=== PATIENT | female | born 1960 | race Caucasian/White ===

== ENCOUNTER → 2018-05-24 | Outpatient (CLI) | payer OTHER ==
--- NOTE | 2018-05-24 13:19 | US ---
EXAMINATION TYPE: US carotid duplex BILAT DATE OF EXAM: 05/24/2018 COMPARISON: NONE CLINICAL HISTORY: R42 Vertigo. EXAM MEASUREMENTS: RIGHT: Peak Systolic Velocity (PSV) cm/sec ----- Right CCA: 81.6 ----- Right ICA: 107.7 ----- Right ECA: 133.4 ICA/CCA ratio: 1.3 RIGHT: End Diastole cm/sec ----- Right CCA: 33.6 ----- Right ICA: 43.0 ----- Right ECA: 38.7 LEFT: Peak Systolic Velocity (PSV) cm/sec ----- Left CCA: 92.0 ----- Left ICA: 121.1 ----- Left ECA: 92.0 ICA/CCA ratio: 1.3 LEFT: End Diastole cm/sec ----- Left CCA: 38.6 ----- Left ICA: 59.7 ----- Left ECA: 24.1 VERTEBRALS (direction of flow): Right Vertebral: Antegrade Left Vertebral: Antegrade Rhythm: Normal Mild atherosclerotic changes, Calcified plaque proximal Left ICA IMPRESSION: 1. Mild atherosclerotic changes bilaterally with no significant hemodynamic stenosis. Criteria for Assigning % of Stenosis / Diameter reduction (Estimation based on the indirect measurements of the internal carotid artery velocities (ICA PSV). 1. Normal (no stenosis)=ICA PSV < 125 cm/s: ratio < 2.0: ICA EDV<40 cm/s. 2. Less than 50% stenosis=ICA PSV < 125 cm/s: ratio < 2.0: ICA EDV<40 cm/s. 3. 50 to 69% stenosis=ICA PSV of 125 to 230 cm/s: ration 2.0 ? 4.0: ICA EDV 40-100 cm/s. 4. Greater than 70% stenosis to near occlusion= ICA PSV > 230 cm/s: ratio > 4.0: ICA EDV > 100 cm/s. 5. Near occlusion= ICA PSV velocities may be low or undetectable: variable ratio and ICA EDV. 6. Total occlusion=unable to detect flow.
== END | disposition home or self-care (01) ==
LOC: RADUSWWP 12:32
PROVIDERS: ATTEND Family Medicine
DX: I65.23 Occlusion and stenosis of bilateral carotid arteries (principal); Z88.6 Allergy status to analgesic agent; Z88.0 Allergy status to penicillin
CPT/HCPCS: 93880

== ENCOUNTER → 2018-06-07 | Outpatient (CLI) | payer OTHER ==
--- NOTE | 2018-06-14 13:06 | HM ---
HOLTER MONITOR REPORT Patient was monitored for 24 hours. The baseline rhythm is a sinus mechanism with normal conduction. The average rate 74 beats per minute, minimum 48, maximum 140 beats per minute. Ventricular ectopic activity was not present. Supraventricular ectopic activity was present in the form of rare single PACs. Symptoms of nausea and vomiting did not correlate with any dysrhythmia. CONCLUSION: 1. Sinus mechanism baseline rhythm. 2. No ventricular ectopic activity. 3. Rare supraventricular ectopic activity. 4. Symptoms did not correlate with any dysrhythmia. MMODL / IJN: [id number] /
== END | disposition home or self-care (01) ==
LOC: RADECHMAIN 11:53
PROVIDERS: ATTEND Family Medicine
DX: R55 Syncope and collapse (principal); Z88.0 Allergy status to penicillin; Z88.5 Allergy status to narcotic agent; Z88.6 Allergy status to analgesic agent
CPT/HCPCS: 93225; 93226

== ENCOUNTER → 2018-06-15 | Outpatient (CLI) | payer OTHER ==
--- NOTE | 2018-06-16 14:13 | MM ---
Reason for exam: screening (asymptomatic). Last mammogram was performed 2 years and 8 months ago. History: Benign left mammotome panel of the left breast, September 04, 2009. Benign excisional biopsy of the left breast. Physical Findings: A clinical breast exam by your physician is recommended on an annual basis and results should be correlated with mammographic findings. MG Screening Mammo w CAD Bilateral CC and MLO view(s) were taken. Prior study comparison: October 04, 2015, bilateral MG screening mammo w CAD. August 28, 2009, left breast mammogram dig work up. Left upper outer quadrant focal asymmetry. Middle posterior depth central slightly upper left distortion 6cm from nipple. This could correspond to the excisional site but appears new. ASSESSMENT: Incomplete: need additional imaging evaluation, BI-RAD 0 RECOMMENDATION: Special view mammogram of the left breast. If lesion persists on supplemental views, image directed ultrasound is recommended. [facility] will attempt to contact patient to return for supplemental views and ultrasound if indicated.
== END | disposition home or self-care (01) ==
LOC: RADMAMWWP 12:36
PROVIDERS: ATTEND Family Medicine
DX: Z12.31 Encounter for screening mammogram for malignant neoplasm of breast (principal)
CPT/HCPCS: 77067

== ENCOUNTER → 2018-06-21 | Outpatient (CLI) | payer OTHER ==
--- NOTE | 2018-06-21 22:42 | MR ---
EXAMINATION TYPE: MR brain wo/w con DATE OF EXAM: 06/21/2018 COMPARISON: NONE HISTORY: Migraines / G43.909 / Syncope / R55 TECHNIQUE: Multiplanar, multisequence images of the brain and brainstem is performed without and with IV contras t, utilizing 7.5 mL intravenous Gadavist . FINDINGS: Diffusion weighted images demonstrate no evidence of a recent infarct or other diffusion ab normality. There is no worrisome extra-axial fluid collection. The ventricular system and cisternal spaces are normal in size and appearance. The brain volume is age appropriate. There is occasional focus of T2 hyperintensity seen throughout the white matter bilaterally. Roughly 5-10 scattered lesio ns are seen. One of largest lesions is 4 mm posterior left frontal region at level of centrum semiova le on axial image 21. Midline structures demonstrate normal morphology. The craniocervical junction appears within normal limits. Post contrast images demonstrate no abnormal enhancement. The dural venous sinuses appear pa tent. Mild mucosal thickening involving ethmoid sinuses bilaterally is present otherwise paranasal si nuses are clear. The globes are intact bilaterally. No suspicious opacification of mastoid air cells is seen. IMPRESSION: Mild nonspecific white matter changes may be on basis of altered vascular flow related to product of migraine headaches. No suspicious enhancement is noted.
== END | disposition home or self-care (01) ==
LOC: RADMRIMAIN 18:35
PROVIDERS: ATTEND Family Medicine
DX: R90.82 White matter disease, unspecified (principal); G43.909 Migraine, unspecified, not intractable, without status migrainosus
CPT/HCPCS: 70553; A9585

== ENCOUNTER → 2018-08-09 | Day surgery (SDC) | payer OTHER ==
[2018-08-05 14:15] VITALS: BMI 26.2
[~2018-08-09] MED LIST: HYDROmorphone 0.5 MG/0.5 ML SYRINGE IVP PRN; KETOROLAC 30 MG/ML 1 ML VIAL ONE; LACTATED RINGERS 1,000 ML IV SCH; LIDOCAINE 1% 20 ML VIAL (10MG/ML) FOR IV START INTRADERMA PRN; MIDAZOLAM 2 MG/2 ML VIAL IVP ONE; MIDAZOLAM 2 MG/2 ML VIAL ONE; ONDANSETRON 4 MG/2 ML VIAL IVP ONE; PROPOFOL 10 MG/ML 20 ML VIAL IV ONE; Pre Op ABX Message 1 EACH MISC MISCELLANE ONE; ceFAZolin IN SWFI 2 GM/20 ML SYRINGE IVP STA; fentaNYL (PF) 50 MCG/ML 2 ML AMP IVP ONE; fentaNYL (PF) 50 MCG/ML 2 ML AMP ONE
[2018-08-09 09:28] VITALS: RESP 16; TEMP 98.2
--- NOTE | 2018-08-09 11:09 | P.ONQ ---
Anesthesiology Proc Note - PNB - Peripheral Nerve Block Performed Left Axillary Single Time Out Performed: Yes (1020) Procedure Start Time: 10:20 Procedure Stop Time: 10:26 Indication: Acute Post-Operative Pain, Dx/Pain Location (Left Wrist Pain), Requested by physician Sedation Type: Sedate with meaningful contact maintained Preparation: Sterile Prep Position: Supine Catheter: None Needle Types: On-Q Needle Size: 50mm (2") Needle Gauge: 21 Technique: Ultrasound Injectate: Other (see comment) (15ml 0.5% Ropivacaine + 10ml 2% Lidocaine with 1 :200,000 epi) Blood Aspirated: No Pain Paresthesia on Injection Noted: No Resistance on Injection: Normal Events: Uneventful and Well Tolerated
[2018-08-09 12:05] VITALS: PULSE 71
--- NOTE | 2018-08-09 12:15 | OP ---
OPERATIVE REPORT DATE OF SERVICE: 08/09/2018 PREOPERATIVE DIAGNOSES: 1. Basal joint arthritis, left thumb. 2. Left carpal tunnel syndrome. POSTOPERATIVE DIAGNOSES: 1. Basal joint arthritis, left thumb. 2. Left carpal tunnel syndrome. PROCEDURE: 1. Excision of trapezium with ligament reconstruction, tendon interposition arthroplasty using the flexor carpi radialis tendon, left thumb. 2. Left carpal tunnel release. APPLICATOR SPRAYER: Faye Osorio. PROCEDURE DESCRIPTION: The patient was taken to the Operative Suite after an axillary block was performed by the Department of Anesthesia in the holding area with good results. The involved arm was prepped and draped in the usual manner, elevated, exsanguinated and blood pressure tourniquet inflated to 250 mm of mercury. A volar incision was made over the palm of the hand using a Britton approach. The dissection was taken through the subcutaneous tissue bluntly to identify and to preserve sensory branches. The flexor carpi radialis tendon was initially identified and kept in view throughout the remainder of the procedure. The thenar muscles were then gently dissected off of the volar capsule and reflected ulnarly and distally. Longitudinal arthrotomy was then made into the trapezial metacarpal and scaphotrapezial joints. The trapezium was dissected sharply with a little traction on the thumb and care again, given to monitoring the position of the flexor carpi radialis. The trapezium was osteotomized and removed in piecemeal fashion using rongeur. Again, the flexor carpi radialis tendon was kept intact so as not to be harmed during this portion of the procedure. A drill hole was then made into the base of the first metacarpal, beginning with an awl and enlarged using drill bits and a large curette. A similar hole was drilled on the dorsal aspect of the base of the first metacarpal perpendicular to the plane of the nail bed. Attention was then turned to harvesting the flexor carpi radialis. Approximately 8 to 10 cm proximal to the wrist, small transverse incision was made and blunt dissection was taken through the subcutaneous tissue. The flexor carpi radialis tendon was identified and released to this level. It was retracted into the wrist wound with a gentle tug. A suspension sling arthroplasty was then performed along with ligament reconstruction of the deep volar ligament using the flexor carpi radialis tendon. The edge of the tendon was secured with suture. The suture was then passed into the base of the first metacarpal and brought out through the dorsal drill hole and brought back down upon itself and abductor pollicis longus tendons. It was secured in place with 3-0 PDS suture. It was then brought back around itself, back through the abductor pollicis longus tendons, and back down upon itself again and further secured with 3-0 PDS suture. Again, in this manner reconstruction of the deep volar ligament was accomplished as well as a suspension sling arthroplasty and natural tendon spacer for the joint. Next, a longitudinal incision was made along the ring finger ray distal to the wrist crease. Dissection was taken through the skin and subcutaneous tissue, initially sharp through the skin and then blunt through the subcutaneous tissue to ensure protection of any potential terminal transverse branches of the palmar cutaneous nerve. The palmar fascia was then incised under direct vision longitudinally exposing the transverse carpal ligament. The transverse carpal ligament also was incised under direct visualization. The median nerve was then reflected free of tenosynovium to ensure no adhesions. At this point, a slight hour glass constriction was noted of the median nerve beneath the transverse carpal ligament. Both wounds were again irrigated and were closed with running and interrupted 5-0 nylon suture. A soft bulky dressing was then applied including the volar plaster splint, immobilizing the wrist in neutral position and a thumb spica splint to the IP joint, immobilizing the thumb. The patient was then taken to the Recovery Room in satisfactory condition. MMASHLEY / FABRICEN: [id number] /
[2018-08-09 12:32] VITALS: BP 101/67
== END | disposition home or self-care (01) ==
LOC: OR 09:05
PROVIDERS: ATTEND Orthopaedic Surgery Hand Surgery
DX: M18.12 Unilateral primary osteoarthritis of first carpometacarpal joint, left hand (principal); M19.032 Primary osteoarthritis, left wrist; G56.02 Carpal tunnel syndrome, left upper limb; F17.210 Nicotine dependence, cigarettes, uncomplicated; Z79.890 Hormone replacement therapy; Z88.5 Allergy status to narcotic agent; Z88.0 Allergy status to penicillin
CPT/HCPCS: 25447; 25310; 64721; J2250; J2405; J3010; J1885; J2704

== ENCOUNTER → 2018-10-25 | Outpatient (CLI) | payer OTHER ==
[2018-10-25 11:06] LABS: HCT 44.9 % (34.0-46.0); HGB 14.7 gm/dL (11.4-16.0); MCH 29.4 pg (25.0-35.0); MCHC 32.8 g/dL (31.0-37.0); MCV 89.6 fL (80.0-100.0); Mean Platelet Volume 8.2; Platelet Count 291 k/uL (150-450); RBC 5.01 m/uL (3.80-5.40); RDW 12.5 % (11.5-15.5); WBC 10.1 k/uL (3.8-10.6)
[2018-10-25 11:15] LABS: Anion Gap 9 mmol/L; Blood Urea Nitrogen 12 mg/dL (7-17); Carbon Dioxide 25 mmol/L (22-30); Chloride 109 mmol/L (98-107); Glucose 100 mg/dL (74-99); Potassium 4.4 mmol/L (3.5-5.1); Sodium 143 mmol/L (137-145)
== END | disposition home or self-care (01) ==
LOC: LABPAT 09:57
PROVIDERS: ATTEND Internal Medicine Clinical Cardiac Electrophysiology
DX: Z01.812 Encounter for preprocedural laboratory examination (principal); R00.2 Palpitations; R55 Syncope and collapse
CPT/HCPCS: 36415; 80051; 82565; 82947; 84520; 85027

== ENCOUNTER 2018-10-31 06:43 | Day surgery (SDC) | payer OTHER ==
[2018-10-26 11:18] VITALS: BMI 26.9
[~2018-10-31 06:43] MED LIST changes: -HYDROmorphone 0.5 MG/0.5 ML SYRINGE IVP PRN; -KETOROLAC 30 MG/ML 1 ML VIAL ONE; -LACTATED RINGERS 1,000 ML IV SCH; -MIDAZOLAM 2 MG/2 ML VIAL IVP ONE; -MIDAZOLAM 2 MG/2 ML VIAL ONE; -ONDANSETRON 4 MG/2 ML VIAL IVP ONE; -PROPOFOL 10 MG/ML 20 ML VIAL IV ONE; -Pre Op ABX Message 1 EACH MISC MISCELLANE ONE; +SODIUM CHLORIDE 0.9% 1,000 ML IV SCH; -ceFAZolin IN SWFI 2 GM/20 ML SYRINGE IVP STA; -fentaNYL (PF) 50 MCG/ML 2 ML AMP IVP ONE; -fentaNYL (PF) 50 MCG/ML 2 ML AMP ONE
[2018-10-31 07:49] LABS: Basophils # (A) 0.1 k/uL (0-0.2); Basophils % (A) 1 %; Eosinophils # (A) 0.2 k/uL (0-0.7); Eosinophils % (A) 3 %; HCT 38.8 % (34.0-46.0); HGB 12.9 gm/dL (11.4-16.0); Lymphocytes # (A) 2.4 k/uL (1.0-4.8); Lymphocytes % (A) 30 %; MCH 29.6 pg (25.0-35.0); MCHC 33.3 g/dL (31.0-37.0); Mean Platelet Volume 8.3; Monocytes # (A) 0.4 k/uL (0-1.0); Monocytes % (A) 5 %; Neutrophils # (A) 4.5 k/uL (1.3-7.7); Neutrophils % (A) 58 %; Platelet Count 254 k/uL (150-450); RBC 4.36 m/uL (3.80-5.40); RDW 12.6 % (11.5-15.5); WBC 7.8 k/uL (3.8-10.6)
[2018-10-31 07:50] LABS: Anion Gap 7 mmol/L; Blood Urea Nitrogen 14 mg/dL (7-17); Calcium 9.4 mg/dL (8.4-10.2); Carbon Dioxide 22 mmol/L (22-30); Chloride 112 mmol/L (98-107); Glucose 99 mg/dL (74-99); Sodium 141 mmol/L (137-145)
[2018-10-31] MEDS ORDERED: PROPOFOL 10 MG/ML 20 ML VIAL IV ONE (08:59)
[2018-10-31] MEDS ORDERED: fentaNYL (PF) 50 MCG/ML 2 ML AMP ONE (08:59)
[2018-10-31] MEDS ORDERED: MIDAZOLAM 2 MG/2 ML VIAL ONE (08:59)
[2018-10-31] MEDS ORDERED: ISOPROTERENOL 250 MCG/1.25 ML SYR IV ONE (08:59)
--- NOTE | 2018-10-31 09:10 | P.PCN ---
Preoperative Diagnosis: Diagnosis Recurrent syncope Twelve-lead ECG shows sinus mechanism normal [place] narrow QRS normal QT interval no epsilon waves no delta waves Tilt table test per protocol Baseline blood pressure 106/62 mmHg Baseline heart rate 77 beats a minute Patient was tilted upright at an angle of 70 per protocol No change in heart rate and blood pressure No symptoms Impression Normal twelve-lead ECG at baseline Normal heart rate and blood pressure response to upright tilting Condition: stable
[2018-10-31] MEDS ORDERED: LIDOCAINE 1% INJ 10MG/ML (20 ML MDV) ONE (09:17)
[2018-10-31] MEDS ORDERED: LIDOCAINE 1% INJ 10MG/ML (20 ML MDV) SQ ONE (09:37)
[2018-10-31] MEDS ORDERED: HYDROcodone/APAP 5-325MG 1 EACH TAB PO PRN (10:59)
[2018-10-31] MEDS ORDERED: ACETAMINOPHEN TAB 325 MG TAB PO PRN (10:59)
--- NOTE | 2018-10-31 11:15 | P.DS ---
Providers Attending physician: Tristen Reynolds Primary care physician: Stated None Hospital Course: Patient was admitted for evaluation and management of recurrent episodes of syncope associated with palpitations She underwent tilt table test which showed normal heart rate and blood pressure response to upright tilting Subsequently she underwent a diagnostic EP study both on and off Isuprel No inducible arrhythmias noted No evidence for slow pathway conduction or accessory pathway conduction SVT or ventricular tachycardia, both on and off Isuprel On examination Impression Recurrent altered consciousness and palpitations but are normal tilt table test and normal diagnostic EP study No inducible arrhythmias Suggest Reassurance regarding any inducible arrhythmias as a cause of her symptoms Follow-up with Dr. Guerra for further workup Plan - Discharge Summary Discharge Rx Participant: Yes New Discharge Prescriptions: Continue Estrogens, Conjugated [Premarin] 0.625 mg PO QAM Topiramate [Trokendi Xr] 25 mg PO DAILY Discharge Medication List Estrogens, Conjugated [Premarin] 0.625 mg PO QAM 01/02/16 [History] Topiramate [Trokendi Xr] 25 mg PO DAILY 10/26/18 [History] Follow up Appointment(s)/Referral(s): Tristen Reynolds MD [STAFF PHYSICIAN] - 2 Weeks (Follow with Dr. Lee/[place] within 2 weeks for a groin check) Activity/Diet/Wound Care/Special Instructions: Post EP study - Ablation instructions 1. Keep access sites dry for 2 days. 2. No heavy lifting or straining for 2 days. 3. Avoid bending the hips repeatedly for 2 days. 4. You may go up and down stairs slowly Call if the following is noted 1. Bleeding, increasing swelling or pain at the access sites. 2. Increasing chest discomfort, especially upon taking a deep breath. 3. Increasing shortness of breath, at rest or with exertion. 4. Undue cough / phlegm 5. Difficulty or pain while swallowing. 6. Pain or change in color in the extremities. 7. Fever, chills, rigors. 8. Increasing headache or neurologic symptoms. 9. Dizziness, fainting, palpitations Discharge home at 9 PM tonight if ambulating in the hallways for a few hours without any groin issues no bleeding from the groins and if vitals are stable Follow Dr. Lee within 2 weeks for a groin check Discharge Disposition: HOME SELF-CARE
--- NOTE | 2018-10-31 12:52 | CE ---
CARDIAC ELECTROPHYSIOLOGY REPORT This is a 57-year-old female with recurrent syncope, presyncope associated with palpitations. She was first brought in for a tilt-table test which was normal. She was brought in for diagnostic EP study thereafter. The patient was brought to the EP lab in a fasting state. Written informed consent was obtained prior to the procedure. The right groin was prepped and draped as per protocol and 1% lidocaine was used for local anesthesia. The right groin was prepped and draped as per protocol. Three venous sheaths were placed in the right femoral vein via these 3 diagnostic catheters were positioned in the high right atrium, His bundle area and RV. Later the high right atrial catheter was moved to the coronary sinus for coronary sinus pacing and recording. Isuprel was used after the baseline study. Sinus cycle length 809 milliseconds. WI interval 118 milliseconds. QRS 98 milliseconds. QT 375 milliseconds. AH interval was 65 milliseconds. HV interval 30 milliseconds. Sinus node recovery times of 600, 500, 400 milliseconds were 1342, 1440 and 1496 milliseconds. Corresponding corrected sinus node recovery times were within normal limits. AV node Wenckebach block 310 milliseconds. There was no evidence of slow pathway conduction. No delta waves noted. VA Wenckebach block in the baseline state 240 milliseconds. Atrial ERP from the high right atrium 600/230 milliseconds. Ventricular ERP from the RV apex 600/260 milliseconds. RV bursts from 400 milliseconds down to 200 milliseconds, no arrhythmias induced. Isuprel started wide open and then 2 mcg. AV node Wenckebach block improved to 230 milliseconds, VA Wenckebach block improved to 200 milliseconds. No delta waves. No accessory pathway conduction. No slow pathway conduction. AV node ERP 400/less than 200 milliseconds. The VA conduction during extra stimulation was midline and decremental. VA ERP 400/less than 200 milliseconds. Coronary sinus pacing was performed. AV node Wenckebach block 240 milliseconds and ERP from the coronary sinus 400/less than 200 milliseconds. A kate response was noted to the His bundle pacing. IMPRESSION: 1. Diagnostic EP study revealing normal baseline measurements. 2. Normal sinus node function. 3. No evidence of slow pathway conduction or delta waves. 4. No atrial arrhythmias. No ventricular arrhythmias. No evidence for any accessory pathway conduction or slow pathway conduction. PLAN: Reassurance regarding any arrhythmias. Further workup for noncardiac causes of altered consciousness and palpitations per her primary care physician and Neurology. MMODL / IJN: [id number] /
[2018-10-31] MEDS: LACTATED RINGERS 1,000 ML IV SCH ×3 (12:53→13:23)
[2018-10-31] MEDS ORDERED: ACETAMINOPHEN IV (For NPO) 1,000 MG in EMPTY BAG 1 BAG IVPB ONE (13:00)
[2018-10-31 16:18] VITALS: BP 102/64; PULSE 64; RESP 14; TEMP 98.5
== END 2018-10-31 20:00 | disposition home or self-care (01) ==
LOC: CATHEP 06:43 → 1SOBS 11:54 → CATHEP 20:00
PROVIDERS: ATTEND Internal Medicine Clinical Cardiac Electrophysiology
DX: R55 Syncope and collapse (principal); R00.2 Palpitations; F17.210 Nicotine dependence, cigarettes, uncomplicated; Z82.49 Family history of ischemic heart disease and other diseases of the circulatory system; Z88.6 Allergy status to analgesic agent; Z88.5 Allergy status to narcotic agent; Z79.899 Other long term (current) drug therapy; Z79.3 Long term (current) use of hormonal contraceptives; Z88.0 Allergy status to penicillin
CPT/HCPCS: 93623; 93619; 93660; 80048; 84443; 85025; C1894; C1769 ×2; C1730 ×3; J2250; J2001; J3010; J2704; 93620

== ENCOUNTER 2018-12-22 09:30 | Emergency (ER) | payer OTHER ==
[2018-12-22 09:40] VITALS: BP 124/80; PULSE 83; RESP 18; TEMP 98.3
--- NOTE | 2018-12-22 10:18 | XR ---
Right hand and right wrist HISTORY: Trauma and pain 3 views of the right hand, 4 views of the right wrist submitted. Soft tissue swelling is noted. Bone mineralization mildly reduced. Joint spaces remarkable for arthropathy greatest at the first carpometacarpal joint. There is volar a ngulation at the distal fifth metacarpal with associated soft tissue swelling, lucency seen on the ob lique view. IMPRESSION: Correlate for distal fifth metacarpal fracture
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
== END 2018-12-22 10:54 | disposition home or self-care (01) ==
LOC: EC 09:30
DX: S62.306A Unspecified fracture of fifth metacarpal bone, right hand, initial encounter for closed fracture (principal); G43.909 Migraine, unspecified, not intractable, without status migrainosus; F17.200 Nicotine dependence, unspecified, uncomplicated; Z79.899 Other long term (current) drug therapy; Z88.0 Allergy status to penicillin; Z88.5 Allergy status to narcotic agent; V19.9XXA Pedal cyclist (driver) (passenger) injured in unspecified traffic accident, initial encounter; Y93.55 Activity, bike riding; Y92.009 Unspecified place in unspecified non-institutional (private) residence as the place of occurrence of the external cause
CPT/HCPCS: 99284

== ENCOUNTER → 2019-01-16 | Outpatient (CLI) | payer OTHER | END | disposition home or self-care (01) | LOC: LABWHC1 09:14 | PROVIDERS: ATTEND Orthopaedic Surgery | DX: M79.641 Pain in right hand (principal); M25.531 Pain in right wrist; S62.336D Displaced fracture of neck of fifth metacarpal bone, right hand, subsequent encounter for fracture with routine healing; S63.91XD Sprain of unspecified part of right wrist and hand, subsequent encounter | CPT/HCPCS: 36415; 82306 ==

== ENCOUNTER 2019-07-17 08:14 | Day surgery (SDC) | payer OTHER ==
[2019-07-07 11:42] VITALS: BMI 24.7
[~2019-07-17 08:14] MED LIST changes: +LACTATED RINGERS 1,000 ML IV SCH; +MIDAZOLAM 2 MG/2 ML VIAL IV PRN; +Pre Op ABX Message 1 EACH MISC MISCELLANE ONE; -SODIUM CHLORIDE 0.9% 1,000 ML IV SCH; +fentaNYL (PF) 50 MCG/ML 2 ML AMP IV PRN
[2019-07-17 09:42] VITALS: RESP 16; TEMP 98.1
[2019-07-17] MEDS ORDERED: LIDOCAINE 1% INJ 10MG/ML (20 ML MDV) ONE (10:00)
[2019-07-17] MEDS ORDERED: MIDAZOLAM 2 MG/2 ML VIAL ONE (10:00)
[2019-07-17] MEDS ORDERED: PROPOFOL 10 MG/ML 20 ML VIAL IV ONE (10:00)
[2019-07-17] MEDS ORDERED: fentaNYL (PF) 50 MCG/ML 2 ML AMP ONE (10:00)
[2019-07-17] MEDS ORDERED: BUPIVACAINE (PF) 0.5% 30 ML VIAL SQ ONE ×2 (10:01→10:10)
[2019-07-17] MEDS ORDERED: LIDOCAINE 2% (PF) 20 MG/ML 10 ML AMP SQ ONE ×2 (10:01→10:10)
[2019-07-17 10:48] VITALS: BP 99/66; PULSE 78
--- NOTE | 2019-07-17 10:54 | OP ---
OPERATIVE REPORT DATE OF SURGERY: 07/17/2019. PREOPERATIVE DIAGNOSIS: De Quervain's tendinitis left wrist. POSTOP DIAGNOSIS: De Quervain's tendinitis left wrist. PROCEDURE: De Quervain first compartment release, left wrist. DESCRIPTION OF PROCEDURE: The patient was taken to the operative suite where a regional Drake block anesthetic was performed by the department of anesthesia with good result. The arm was then prepped and draped in the usual manner. A transverse incision was made over the radial styloid. Dissection was taken through the skin only in a sharp manner and then blunt dissection was used to go through the subcutaneous tissue to the extensor retinaculum. In this manner care was taken to avoid any injury to the dorsal branch of the radial nerve. The extensor retinaculum was identified and visualized with both its proximal and distal aspects. Beginning distally the extensor tendons were identified and followed into the tunnel in a retrograde manner. The tunnel was opened along its dorsal margins. In this way a volar lip was preserved to prevent volar subluxation of the tendons over the radial styloid postoperatively. The multiple cysts of the abductor and the extensor pollicis brevis were released and care was taken to make sure that all tendons were free at the completion. A limited tenosynovectomy was performed. The tendons were retracted from the wound to insure no adhesions. The wound was irrigated. The tendons were left within the bed of the first dorsal extensor compartment and the volar flap which had been preserved as discussed above was laid gently over the top of the tendons. The wound was then closed with 6-0 Nylon suture. Marcaine was injected followed by application of a soft bulky dressing and volar plaster splint including the thumb with the wrist in a slight extension. The patient was then taken to the recovery room in satisfactory condition. MMODL / IJN: [id number] /
== END 2019-07-17 11:54 | disposition home or self-care (01) ==
LOC: OR 08:14
PROVIDERS: ATTEND Orthopaedic Surgery Hand Surgery
DX: M65.4 Radial styloid tenosynovitis [de Quervain] (principal); G43.909 Migraine, unspecified, not intractable, without status migrainosus; F17.210 Nicotine dependence, cigarettes, uncomplicated; Z79.899 Other long term (current) drug therapy; Z90.710 Acquired absence of both cervix and uterus; Z98.891 History of uterine scar from previous surgery; Z98.890 Other specified postprocedural states; Z97.3 Presence of spectacles and contact lenses; Z88.0 Allergy status to penicillin; Z88.6 Allergy status to analgesic agent
CPT/HCPCS: 25000; J2250; J2001 ×2; J3010; J2704

== ENCOUNTER → 2022-05-20 | Outpatient (CLI) | payer OTHER ==
--- NOTE | 2022-05-22 07:29 | MM ---
Reason for Exam: Screening (asymptomatic). Last mammogram was performed 3 year(s) and 11 month(s) ago. Patient History: Menarche at age 15. First Full-Term at age 21. Hysterectomy at age 39. Benign Excisional Biopsy on the left side. 09/04/2009, Benign Core Biopsy on the left side. Risk Values: Analilia 5 year model risk: 1.5%. NCI Lifetime model risk: 8.1%. Prior Study Comparison: 08/28/2009 Left Diagnostic Mammogram, [facility]. 10/04/2015 Bilateral Screening Mammogram, [facility]. 06/15/2018 Bilateral Screening Mammogram, [facility]. Tissue Density: The breast tissue is heterogeneously dense. This may lower the sensitivity of mammography. Findings: Analyzed By CAD. There is no suspicious group of microcalcifications or new suspicious mass in either breast. Overall Assessment: Benign, BI-RAD 2 Management: Screening Mammogram of both breasts in 1 year. A clinical breast exam by your physician is recommended on an annual basis and results should be correlated with mammographic findings. Electronically signed and approved by: Dennys Sylvester M.D. Radiologis
== END | disposition home or self-care (01) ==
LOC: RADMAMWWP 13:20
PROVIDERS: ATTEND Family Medicine
DX: Z12.31 Encounter for screening mammogram for malignant neoplasm of breast (principal)
CPT/HCPCS: 77067

== ENCOUNTER → 2022-06-16 | Outpatient (CLI) | payer OTHER ==
--- NOTE | 2022-06-16 16:43 | MR ---
EXAMINATION TYPE: MR brain wo con DATE OF EXAM: 06/16/2022 COMPARISON: NONE HISTORY: 61-year-old female R42, vertigo TECHNIQUE: Multiplanar, multisequence images of the brain and brainstem were acquired without IV con trast. Diffusion weighted imaging is performed. FINDINGS: No evidence for acute infarction, hemorrhage, mass, mass effect, midline shift, herniation, effacemen t of basal cisterns, or extra-axial fluid collection. The ventricles and sulci are age-appropriate. 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 Major intr acranial flow voids otherwise appear intact. T2/FLAIR weighted sequences show trace punctate bright signal foci in the subcortical region of both cerebral hemispheres numbering less than 5 on each side, either age related change or trace burden of chronic small vessel ischemic disease. Midline structures demonstrate normal morphology. The craniocervical junction is normal. Post contrast images demonstrate no evidence of pathologic enhancement. Dural venous sinuses are pat ent. Mild to moderate mucosal thickening ethmoid air cells. Globes are intact. IMPRESSION: No acute intracranial abnormality seen. Trace burden of T2 bright white matter change probably relate d to normal aging or minimal changes of chronic small vessel ischemic disease. Mild to moderate chronic ethmoid sinus disease.
== END | disposition home or self-care (01) ==
LOC: RADMRIMAIN 13:01
PROVIDERS: ATTEND Family Medicine
DX: J32.2 Chronic ethmoidal sinusitis (principal)
CPT/HCPCS: 70551

== ENCOUNTER → 2022-06-17 | Outpatient (CLI) | payer OTHER ==
--- NOTE | 2022-06-18 08:49 | US ---
EXAMINATION TYPE: US carotid duplex BILAT DATE OF EXAM: 06/17/2022 COMPARISON: 05/24/2018 CLINICAL HISTORY: 61-year-old female [id number] DIZZINESS AND GIDDINESS. Dizziness TECHNIQUE: Carotid duplex ultrasound examination. Indirect Doppler criteria was utilized. FINDINGS: EXAM MEASUREMENTS: RIGHT: Peak Systolic Velocity (PSV) cm/sec ----- Right CCA: 106 ----- Right ICA: 235 ----- Right ECA: 117 ICA/CCA ratio: 2.22 RIGHT: End Diastole cm/sec ----- Right CCA: 27.9 ----- Right ICA: 76.5 ----- Right ECA: 24.6 LEFT: Peak Systolic Velocity (PSV) cm/sec ----- Left CCA: 110 ----- Left ICA: 120 ----- Left ECA: 120 ICA/CCA ratio: 1.09 LEFT: End Diastole cm/sec ----- Left CCA: 38.8 ----- Left ICA: 46.2 ----- Left ECA: 22.0 VERTEBRALS (direction of flow): Right Vertebral: Antegrade Left Vertebral: Antegrade Rhythm: Normal DIRECTOR [employer]CIAL [employer]ANNING NOTES: Mild to moderate plaque bilateral bifurcations. Increased velocities right ICA IMPRESSION: Elevated velocities right ICA. Unable to exclude a moderate or severe proximal ICA stenosis. Further CTA evaluation as clinically indicated. Criteria for Assigning % of Stenosis / Diameter reduction (Estimation based on the indirect measurements of the internal carotid artery velocities (ICA PSV). 1. Normal (no stenosis)=ICA PSV < 125 cm/s: ratio < 2.0: ICA EDV<40 cm/s. 2. Less than 50% stenosis=ICA PSV < 125 cm/s: ratio < 2.0: ICA EDV<40 cm/s. 3. 50 to 69% stenosis=ICA PSV of 125 to 230 cm/s: ration 2.0 ? 4.0: ICA EDV 40-100 cm/s. 4. Greater than 70% stenosis to near occlusion= ICA PSV > 230 cm/s: ratio > 4.0: ICA EDV > 100 cm/s. 5. Near occlusion= ICA PSV velocities may be low or undetectable: variable ratio and ICA EDV. 6. Total occlusion=unable to detect flow.
== END | disposition home or self-care (01) ==
LOC: RADUSWWP 16:14
PROVIDERS: ATTEND Family Medicine
DX: I65.21 Occlusion and stenosis of right carotid artery (principal)
CPT/HCPCS: 93880

== ENCOUNTER → 2022-07-22 | Outpatient (CLI) | payer OTHER ==
--- NOTE | 2022-07-22 17:45 | CT ---
EXAMINATION TYPE: CT angio neck DATE OF EXAM: 07/22/2022 HISTORY: Dizziness, abnormal carotid US. COMPARISON: CT DLP: 211.40 mGycm. Automated Exposure Control for Dose Reduction was Utilized. TECHNIQUE: CTA scan of the neck is performed with IV Contrast, patient injected with 65 mL of Isovue 370, axial images are obtained, coronal and sagittal reformatted images are reviewed. Three-D recons tructed images are created on an independent workstation and reviewed. Source images are reviewed. FINDINGS: Carotid/Vascular Structures: There is a three-vessel arch. Common carotid arteries appear unremarkabl e. The vertebral arteries are codominant. Some atheromatous plaque is evident at the carotid bifurcat ions. Left carotid bifurcation Significant flow-limiting stenosis is not evident. There is moderate n arrowing of the right proximal internal carotid artery. By measurement this is estimated at 55%. Note made of severe left external carotid artery stenosis. This appears less stenotic on the source image s. IMPRESSION: 1. Moderate narrowing of at least 55% proximal right internal carotid artery. NASCET criteria was used in interpretation of this exam?
== END | disposition home or self-care (01) ==
LOC: RADCTMAIN 08:44
PROVIDERS: ATTEND Family Medicine
DX: I65.21 Occlusion and stenosis of right carotid artery (principal); R93.89 Abnormal findings on diagnostic imaging of other specified body structures
CPT/HCPCS: 70498; Q9967